=== PATIENT | female | born 1965 | race Caucasian/White ===

== ENCOUNTER 2022-10-04 08:28 | Emergency (ER) | payer MEDICAID, OTHER ==
[~2022-10-04] VITALS: Ht 167.6 cm; Wt 63.5 kg
[~2022-10-04 08:28] MED LIST: LEVO125T8
[2022-10-04 08:49] VITALS: BP_SYST 151
--- NOTE | 2022-10-04 09:01 | NUR ---
PT WALKED TO ROOM 1 WITH STEADY GAIT. EKG DONE BEDSIDE, NSR. DR FLOR AWARE.
[2022-10-04] MEDS ORDERED: ACETAMINOPHEN 500 MG TABLET PO ONE (09:30)
[2022-10-04] MEDS ORDERED: LORazepam 1 MG TABLET PO ONE (09:30)
--- NOTE | 2022-10-04 09:52 | NUR ---
PT WAS MEDICATED WITH TYLENOL AND ATIVAN PER MD ORDER.
--- NOTE | 2022-10-04 09:54 | NUR ---
TAKEN TO RADIOLOGY VIA WHEELCHAIR
--- NOTE | 2022-10-04 10:07 | NUR ---
RETURNED FROM RADIOLOGY, BACK TO [facility]
--- NOTE | 2022-10-04 10:58 | NUR ---
Patient given written and verbal discharge instructions and verbalizes understanding. ER MD discussed with patient the results and treatment provided. Patient in stable condition. ID arm band removed. Rx of ROBAXIN given. Patient educated on pain management and to follow up with PMD. Pain Scale 0/10. Opportunity for questions provided and answered. Medication side effect fact sheet provided.
[2022-10-04] MEDS ORDERED: METH-634 PO (11:05)
== END 2022-10-04 10:58 | disposition home or self-care (01) ==
LOC: SED 08:28
DX: S16.1XXA Strain of muscle, fascia and tendon at neck level, initial encounter (principal); Z79.899 Other long term (current) drug therapy; X58.XXXA Exposure to other specified factors, initial encounter; Y93.89 Activity, other specified; Y92.89 Other specified places as the place of occurrence of the external cause; Y99.8 Other external cause status
CPT/HCPCS: 72040-TC; 93005; 99283

== ENCOUNTER 2024-05-29 09:43 | Emergency (ER) | payer OTHER ==
[~2024-05-29] VITALS: Ht 170.2 cm; Wt 74.8 kg
[~2024-05-29 09:43] MED LIST changes: +METH-634 PO
[2024-05-29 09:48] VITALS: BP_SYST 138; PULSE 63; RESP 18; TEMP 98.3; O2SAT 100
[2024-05-29] MEDS: KETOROLAC TROMETHAMINE 30 MG VIAL IVP ONE (10:43)
[2024-05-29 10:59] LABS: EOSINOPHILS # (AUTO) 0.1 K/uL (0.0-0.4); EOSINOPHILS % (AUTO) 1.3 % (0.0-4.0); MONOCYTES # (AUTO) 0.5 K/uL (0.0-1.0); WHITE BLOOD COUNT (AUTO) 6.5 K/uL (4.8-10.8)
[2024-05-29 11:01] LABS: BASOPHILS % (AUTO) 0.6 % (0.0-2.0); HEMATOCRIT 37.2 % (36-48); LYMPHOCYTES # (AUTO) 2.2 K/uL (1.0-5.5); LYMPHOCYTES % (AUTO) 33.9 % (20.5-51.5); MEAN CORPUSCULAR HEMOGLOBIN 31 pg (27-31); MEAN CORPUSCULAR HGB CONC 35 % (32-36); MEAN CORPUSCULAR VOLUME 90 fL (79.0-98.0); MONOCYTES % (AUTO) 7.1 % (1.7-9.3); NEUTROPHILS # (AUTO) 3.7 K/uL (1.8-7.7); NEUTROPHILS % (AUTO) 57.1 % (40.0-70.0); PLATELET COUNT (AUTO) 224 K/uL (130-430); RED BLOOD CELL COUNT(AUTO) 4.15 MIL/uL (4.2-6.2); RED CELL DISTRIBUTION WIDTH 13.5 % (9.0-15.0)
[2024-05-29 11:12] LABS: ALANINE AMINOTRANSFERASE 15 U/L (12-78); ALBUMIN 3.7 g/dL (3.4-4.8); ANION GAP 10 (5-15); ASPARTATE AMINOTRANSFERASE 14 U/L (10-37); BILIRUBIN,DIRECT 0.1 mg/dL (0.0-0.3); CALCIUM 9.2 mg/dL (8.4-11.0); CARBON DIOXIDE 25 mmol/L (23-29); CHLORIDE 100 mmol/L (98-107); GFR AFRICAN AMERICAN 132 mL/min (>90); GLUCOSE 128 mg/dL (74-106); LIPASE 29 U/L (16-77); POTASSIUM 3.9 mmol/L (3.5-5.1); SODIUM SERUM 135 mmol/L (136-145); TOTAL BILIRUBIN 0.4 mg/dL (0.0-1.0); UREA NITROGEN, BLOOD 13 mg/dL (8-21)
[2024-05-29 11:16] LABS: GFR NON AFRICAN-AMERICAN 109 mL/min (>90)
[2024-05-29 11:46] LABS: BILIRUBIN,URINE NEGATIVE (NEGATIVE); BLOOD, URINE NEGATIVE (NEGATIVE); CLARITY/URINE CLEAR (CLEAR); COLOR,URINE YELLOW (YELLOW); GLUCOSE,URINE NEGATIVE (NEGATIVE); KETONES,URINE NEGATIVE (NEGATIVE); LEUKOCYTE ESTERASE ,URINE TRACE (NEGATIVE); NITRITE, URINE NEGATIVE (NEGATIVE); PROTEIN URINE NEGATIVE (NEGATIVE); UROBILINOGEN,URINE 0.2 (0.2-1.0)
[2024-05-29 12:09] LABS: BACTERIA,URINE RARE /HPF (None Seen); RBC,URINE 0-3 /HPF (0-3); WBC,URINE 0-3 /HPF (0-3)
[2024-05-29] MEDS ORDERED: ACET-2634 PO (13:34)
[2024-05-29] MEDS ORDERED: IBUP-1968 PO (13:34)
[2024-05-29 13:50] VITALS: BP_SYST 119; PULSE 100; RESP 20; TEMP 97.8; O2SAT 97
== END 2024-05-29 13:51 | disposition home or self-care (01) ==
LOC: SED 09:43
DX: M79.621 Pain in right upper arm (principal); R10.31 Right lower quadrant pain; E11.9 Type 2 diabetes mellitus without complications; I10 Essential (primary) hypertension; Z85.850 Personal history of malignant neoplasm of thyroid
CPT/HCPCS: 99285; 96374; 71045; 80076; 80048; 81000; 81001; 83880; 83690; 85025; 84484; 36415; 93005; 81015; J1885